=== PATIENT | male | born 2000 | race Caucasian/White ===

== ENCOUNTER 2024-09-01 16:03 | Emergency (ER) | payer MEDICAID, SELFPAY ==
[2024-09-01 16:04] VITALS: BP 136/78; PULSE 85; RESP 16; TEMP 36.6; O2SAT 97; BMI 29.5
--- NOTE | 2024-09-01 16:42 | RAD_ITS ---
PROCEDURE: CHEST 1 VIEW (PORTABLE) 09/01/2024 REASON FOR EXAM: CHEST PAIN TECHNIQUE: Frontal view of the chest. COMPARISON: None FINDINGS: No focal consolidation. No pleural effusion or pneumothorax. Cardiac silhouette is within normal limits. RAD/Chest 1 View (Portable) IMPRESSION: No focal consolidations. Reading Location: [id number]
--- NOTE | 2024-09-01 16:42 | RAD_ITS ---
PROCEDURE: CHEST 1 VIEW (PORTABLE) 09/01/2024 REASON FOR EXAM: CHEST PAIN TECHNIQUE: Frontal view of the chest. COMPARISON: None FINDINGS: No focal consolidation. No pleural effusion or pneumothorax. Cardiac silhouette is within normal limits. RAD/Chest 1 View (Portable) IMPRESSION: No focal consolidations. Reading Location: [id number]
--- NOTE | 2024-09-01 16:42 | EKG12_ITS ---
Test Reason : CP Blood Pressure : */* mmHG Vent. Rate : 68 BPM Atrial Rate : 68 BPM P-R Int : 134 ms QRS Dur : 80 ms QT Int : 358 ms P-R-T Axes : 86 74 58 degrees QTcB Int : 380 ms Normal sinus rhythm Normal ECG Confirmed by ZACH GIRON, KIMMIE ([id number]), editorial cartoonist JENNIFER CHURCHILL ([id number]) on 09/02/2024 10:07:24 AM Referred By: Jay Reyes Confirmed By: KIMMIE SERRANO MD
--- NOTE | 2024-09-01 16:42 | EKG12_ITS ---
Test Reason : CP Blood Pressure : */* mmHG Vent. Rate : 68 BPM Atrial Rate : 68 BPM P-R Int : 134 ms QRS Dur : 80 ms QT Int : 358 ms P-R-T Axes : 86 74 58 degrees QTcB Int : 380 ms Normal sinus rhythm Normal ECG Confirmed by ZACH GIRON, KIMMIE ([id number]), supervising editor trailer JENNIFER CHURCHILL ([id number]) on 09/02/2024 10:07:24 AM Referred By: Jay Reyes Confirmed By: KIMMIE SERRANO MD
[2024-09-01 17:03] VITALS: BP 127/78; PULSE 72; RESP 13; O2SAT 98
[2024-09-01 17:09] LABS: Hematocrit 41.6 % (40-54); Hemoglobin 14.0 g/dL (13.0-16.5); Immature Granulocytes Count 0.050 X10^3/uL (0.0-0.0); Mean Corp Hgb Conc 33.7 g/dL (32-36); Mean Corpuscular Volume 86.8 fL (80-94); Mean Platelet Vol. 10.1 fl (6.2-12.0); NRBC Flagged by Analyzer 0 % (0-5); Platelet Count 250 K/mm3 (150-450); RBC Distribution Width CV 12.1 % (11.6-14.6); RBC Distribution Width SD 38.6 fl (35.1-43.9); Red Blood Count 4.79 M/mm3 (4.6-6.2); White Blood Count 9.8 K/mm3 (4.4-11.0)
--- NOTE | 2024-09-01 17:28 | ED.VIS.CHEST ---
HPI History of Present Illness Chief Complaint: Chest Pain Detail of Chief Complaint: Off and on chest pain Informant: patient Onset/Context/Timing Onset: Month(s) (Proximately 12 months) Activity at onset: sudden Timing: Intermittent and Lasts (20 minutes) Quality: Positive for Burning Location: - (Epigastric xiphoid region) Current Severity: Mild Maximum Severity: Moderate Worsened By: Nothing Relieved By: Nothing Associated Symptoms: Positive for - (No radiation. No black or maroon-colored stool); Negative for Nausea, Vomiting, Diaphoresis, Dyspnea, Cough, Fever, Lightheadedness, Acid Reflux or Palpitations Narrative Narrative: Patient is a 23-year-old male. He reports that his lisa's son 2 months ago. He was not the biological father. He states he did raise him. He reports intermittent pain epigastric xiphoid area for approximately 1 year. He volunteered without prompting that his lisa believes this is due to stress and the of her son. Presently his pain-free. He has no associated symptoms. He denies radiation. He has not noted any exacerbating, precipitating or relieving factors. There is nothing specific that brings it on i.e. change in position, activity or food. He denies black or maroon-colored stool. He denies history of GERD, peptic ulcer disease or hiatal hernia. He denies leg pain, swelling discoloration. He has no history of VTE. Prior Similar Symptoms: Yes (No known cause) Recent Illness/Hospitalization: No CVD Risk Factors: Negative for Hypertension, Diabetes, Hypercholesterolemia, Family History 1' </=55 or Smoking PE Risk Factors: Negative for Recent Travel/Surgery, Recent Immobilization, Prior DVT or PE, Cancer or OCP + Smoking + >/=35 TAD Risk Factors: Negative for Marfan's Syndrome, Hypertension or Family History PFSH PFSH Medical History no medical history no medical history Home Medications ?Medication ?Instructions ?Recorded ?Last Taken ?Type NK 09/01/24 Unknown History famotidine 40 mg tablet (Pepcid) 40 mg PO DAILY #14 tabs 09/01/24 Unknown Rx Allergy/AdvReac Type Severity Reaction Status Date / Time No Known Allergies Allergy Verified 09/01/24 16:06 Surgical History no surgical history no surgical history Social History (Updated 09/01/24 @ 17:[address] Jay Reyes MD) household members: significant other and children Smoking Status: Never smoker ROS ROS ED Constitutional Constitutional ED: Denies chills, fever(s), subjective or sweats Eyes Eyes: Reports none Cardiovascular Cardiovascular: Reports as per HPI; Denies orthopnea or paroxysmal nocturnal dyspnea Respiratory/Chest Respiratory/Chest: Denies cough, dyspnea, dyspnea on exertion, orthopnea or paroxysmal nocturnal dyspnea Gastrointestinal Gastrointestinal: Reports abdominal pain; Denies constipation, diarrhea, melena, nausea or vomiting Genitourinary Genitourinary ED: Denies dysuria or hematuria Musculoskeletal Musculoskeletal: Denies back pain Integumentary Denies rash Neurologic Neurologic: Denies weakness Psychiatric Psychiatric: Reports depression Hematologic/Lymphatic Hematologic/Lymphatic: Denies easy bleeding or easy bruising EXAM Physical Exam Const Vital Signs: 09/01/24 16:04 09/01/24 17:03 09/01/24 17:03 Temperature 97.9 F Temperature Source Oral Pulse Rate 85 72 Respiratory Rate 16 13 Respiratory Effort Normal Non-Labored Blood Pressure 136/78 H 127/78 H Blood Pressure Mean 97 94 Pulse Ox 97 98 Oxygen Delivery Method Room Air Room Air 09/01/24 17:05 09/01/24 18:00 Temperature Temperature Source Pulse Rate 62 Respiratory Rate 17 Respiratory Effort Blood Pressure 128/76 H Blood Pressure Mean 93 Pulse Ox 97 Oxygen Delivery Method Room Air Positive well nourished and well developed Constitutional Narrative: Affect is flat mood is depressed. Blood pressure is elevated. Slow psychomotor skills. General Appearance ED: well developed and pallor HEENT Reports moist mucous membranes normocephalic and atraumatic Eyes PERRL and EOMs intact bilaterally General Eye ED: Negative for pale conjunctiva or scleral icterus Neck no lymphadenopathy, supple and no JVD Resp normal respiratory effort and clear to auscultation bilaterally Cardio regular rate, regular rhythm, S1 normal heart sound, S2 normal heart sound and no murmurs GI normal to inspection, nondistended, normoactive bowel sounds, soft to palpation, non-distended and no masses; Negative for non-tender or hepatosplenomegaly GI Narrative: Tenderness is in the epigastric area. Back/Spine no CVA tenderness and no thoracic nor lumbar tenderness Extremity normal to inspection General Extremety ED: Negative for edema, pulses abnormal or tenderness General Extremity: Negative for edema or pulses abnormal Neuro oriented x3 and CN's II-XII intact bilaterally Sensorium / Orientation: awake and alert Psych Mood & Affect: depressed Skin no rashes or lesions noted and no wounds General Skin Exam: pallor MDM MDM MDM Narrative Medical decision making narrative: Chest pain nurse orders were ordered. The 2-hour and 4-hour troponin was canceled. The other labs already in process of being resulted and could not cancel. In my opinion patient has epigastric pain that describes burning with reproducible pain this may be gastritis or stress ulcer. Will treat with GI cocktail. His EKG revealed no acute abnormality. Lab Data Attestation: I reviewed the patient's lab results. Labs: Laboratory Results - last 24 hr 09/01/24 16:48 WBC 9.8 RBC 4.79 Hgb 14.0 Hct 41.6 MCV 86.8 MCH 29.2 MCHC 33.7 RDW Std Deviation 38.6 RDW Coeff of Izabela 12.1 Plt Count 250 MPV 10.1 Immature Gran % (Auto) 0.500 Neut % (Auto) 74.8 H Lymph % (Auto) 16.8 L Ogle % (Auto) 6.7 Eos % (Auto) 0.5 Baso % (Auto) 0.7 Absolute Neuts (auto) 7.3 Absolute Lymphs (auto) 1.64 Nucleated RBC % 0 Sodium 140 Potassium 4.2 Chloride 104 Carbon Dioxide 25.8 Anion Gap 10 BUN 5 Creatinine 1.02 Estim Creat Clear Calc 116.58 Est GFR (MDRD) Non-Af 105 BUN/Creatinine Ratio 4.8 L Glucose 102 H Calcium 9.0 Troponin T High Sens < 6 Radiography Diagnostic Testing: Clinical Impression(s) from Imaging Studies Chest X-Ray 09/01/24 16:42 IMPRESSION: No focal consolidations. Reading Location: [facility] Treatment and Re-Evaluation :: Patient was reassessed at 1856. Patient had significant improvement with GI cocktail. Suspect this is stress related gastritis. Will prescribe H2 lety. Patient was informed of my impression. He was not in disagreement. Discharge Plan Triage Chief Complaint: Chest Pain ED Provider: EricJay Dx/Rx/DC Orders Clinical Impression: Acute epigastric pain, Gastritis, Depression, Stress at home Instructions: ED Depression, ED Gastritis (Adult) Prescriptions: New famotidine [Pepcid] 40 mg tablet 40 mg PO DAILY Qty: 14 0RF No Action NK Primary Care Provider: Noy Barcenas NP Referrals: Noy Barcenas NP, [employer] TEACHER-[employer] [Primary Care Provider] - 1-2 Weeks Print Language: Sinhala Disposition Disposition: Home, Self Care
[2024-09-01 17:34] LABS: Troponin T High Sensitivity < 6 ng/L (<=22)
[2024-09-01 17:40] LABS: Anion Gap 10 (5-15); BUN 5 mg/dL (4-19); BUN/Creat Ratio 4.8 RATIO (10-20); Calcium,Total 9.0 mg/dL (7.6-11.0); Carbon Dioxide 25.8 mmol/L (21.0-32.0); Chloride 104 mmol/L (98-108); Estimated Creatinine Clearance 116.58 ml/min (50-250); Glucose 102 mg/dL (70-99); Potassium 4.2 mmol/L (3.3-5.1)
[2024-09-01] MEDS: Lidocaine 2% Viscous15 ML UDC 15 ML PO (17:44)
[2024-09-01 18:00] VITALS: BP 128/76; PULSE 62; RESP 17; O2SAT 97
[2024-09-01 19:00] VITALS: BP 119/83; PULSE 78; RESP 14; O2SAT 98
[2024-09-01 19:16] VITALS: BP 119/83; PULSE 78; RESP 14; TEMP 36.8; O2SAT 98
== END 2024-09-01 19:21 | disposition home or self-care (01) ==
PROVIDERS: Emergency Provider Emergency Medicine; PCP Nurse Practitioner Family; Referring Provider Emergency Medicine; Visit Provider Emergency Medicine
DX: K29.70 Gastritis, unspecified, without bleeding (principal); F32.A Depression, unspecified; Z63.4 Disappearance and death of family member
CPT/HCPCS: 71045; 80048; 84484; 85025; 93005; 99285; A4216

== ENCOUNTER 2024-10-22 19:32 | Emergency (ER) | payer MEDICAID, SELFPAY ==
[2024-10-22 19:35] VITALS: BP 155/98; PULSE 85; RESP 15; TEMP 36.6; O2SAT 100
--- NOTE | 2024-10-22 20:35 | ED.RN ---
Pt's name was called for a room and pt not present in waiting room, bathroom or outside. Presumed LWBS
--- OUTSIDE RECORDS SUMMARY | 2024-10-22 20:39 | XMS RPT_ITS | CCD ---
Author Organization [facility] Care Team Providers Care Circuit Walker Name Role Phone Dr. Jay Reyes MD Referring Provider [phone] Jay Reyes MD Emergency Provider [phone] Odette Escalante Primary Care Provider Jay Reyes Attending Unavailable Jay Reyes Referring Unavailable Odette Conde Primary Care Unavailable Medications Current Medications Medication Drug Class(es) Dates Sig (Normalized) Sig (Original) famotidine 40 mg oral tablet (1 source) Histamine-2 Receptor Antagonist Start: 09-01-2024 take 1 tablet by mouth once daily Famotidine (Pepcid) 40 mg tablet Active 40 mg PO DAILY 14 0 September 01, 2024 12:00am [place] (Nk) (1 source) Start: 09-01-2024 [place] (Nk) Active September 01, 2024 12:00am Problems Problem Classification Problem Date Documented Da te Episodic/Chronic Abdominal pain (1 source) Epigastric pain; Translations: [Epigastric pain] 09-01-2024 Episodic Adjustment disorders (1 source) Family tension; Translations: [Reaction to severe stress, unspecified] 09-01-2024 Chronic Gastritis and duodenitis (1 source) Gastritis; Translations: [Gastritis, unspecified, without bleeding] 09-01-2024 Episodic Mood disorders (1 source) Depressive disorder; Translations: [Depression] 09-01-2024 Chronic Nonspecific chest pain (1 source) Chest pain, unspecified; Translations: [Chest pain, unspecified] Onset: 09-09-2024 Episodic Results Test Name Value Interpretation Reference Range Facility 12 Lead EKGon 09-01-2024 12 Lead EKG [facility] Cardiovascular Services [address] [place] [address] 12 Lead EKG 09/01/24 1617 MR#: [id number] Acct: [id number] Name: SVEN MONTANA Rep #: [id number] : 2000 23 From: Nikolas Serrano MD Attending Dr: Status: DEP ER Ordering Dr: Jay Reyes MD Date: 09/01/24 Location: ED Sex: M C Admitted: Test Reason : CP Blood Pressure : */* mmHG Vent. Rate : 68 BPM Atrial Rate : 68 BPM P-R Int : 134 ms QRS Dur : 80 ms QT Int : 358 ms P-R-T Axes : 86 74 58 degrees QTcB Int : 380 ms Normal sinus rhythm Normal ECG Confirmed by NIKOLAS SERRANO MD ([id number]), department editor JENNIFER CHURCHILL ([id number]) on 09/02/2024 10:07:24 AM Referred By: Jay Reyes Confirmed By: NIKOLAS SERRANO MD 09/02/241006 Date Nikolas Serrano MD CC: TRAIN CONDUCTOR-C Odette Conde; Dr. Jay Reyes MD Signed Normal [facility] Absolute lymphocyte countOrd ered By: ED PROVIDER on 09-01-2024 Lymphocytes Auto (Unsp spec) [#/Vol] 1.64 10*3/uL 0.83-4.51 [facility] Absolute neutrophil countOrd ered By: ED PROVIDER on 09-01-2024 Neutrophils (Bld) [#/Vol] 7.3 10*3/uL 2.0-7.7 [facility] Anion gap in Serum or Plasma Ordered By: Jay Reyes on 09-01-2024 Anion gap [Moles/Vol] 10 mmol/L 5-15 [facility] Automated lymphocyte count a s percentage of total leukocytesOrdered By: ED PROVIDER on 09-01-2024 Lymphocytes/100 WBC Auto (Unsp spec) 16.8 % Low 19-41 [facility] BUN/creatinine ratioOrdered By: Jay Reyes on 09-01-2024 Urea nitrogen/Creatinine [Mass ratio] 4.8 mg/mg Low 10-20 [facility] Basic Metabolic Profile (BMP )on 09-01-2024 BUN/CRE 4.8 RATIO Low 10-20 [facility] Comment on above: Performed By: #### L 100.0100, L500.2500, L501.4021 #### [facility] [address] [place], [address] Calcium [Mass/Vol] 9.0 mg/dL Normal 7.6-11.0 [facility] Comment on above: Performed By: #### L 100.0100, L500.2500, L501.4021 #### [facility] [address] [place], [address] Chloride [Moles/Vol] 104 mmol/L Normal 98-108 [facility] Comment on above: Performed By: #### L 100.0100, L500.2500, L501.4021 #### [facility] [address] [place], [address] CO2 [Moles/Vol] 25.8 mmol/L Normal 21.0-32.0 [facility] Comment on above: Performed By: #### L 100.0100, L500.2500, L501.4021 #### [facility] [address] [place], [address] Creatinine [Mass/Vol] 1.02 mg/dL Normal 0.70-1.20 [facility] Comment on above: Performed By: #### L 100.0100, L500.2500, L501.4021 #### [facility] [address] [place], [address] ECRCL 116.58 ml/min Normal 50-250 [facility] Comment on above: Performed By: #### L 100.0100, L500.2500, L501.4021 #### [facility] [address] [place], [address] GAP 10 Normal 5-15 [facility] Comment on above: Performed By: #### L 100.0100, L500.2500, L501.4021 #### [facility] [address] [place], [address] GFR/1.73 sq M.predicted among non-blacks MDRD (S/P/Bld) [Vol rate/Area] 105 mL/min/{1.73_m2} Normal >60 [facility] Comment on above: Result Comment: mL/m in/1.73m2 CKD-EPI Creatinine Equation (2020) Performed By: #### L 100.0100, L500.2500, L501.4021 #### [facility] [address] [place], [address] Glucose [Mass/Vol] 102 mg/dL High 70-99 [facility] Comment on above: Performed By: #### L 100.0100, L500.2500, L501.4021 #### [facility] [address] [place], [address] Potassium [Moles/Vol] 4.2 mmol/L Normal 3.3-5.1 [facility] Comment on above: Result Comment: Hemo lysis present, Results??could be affected. ?? Performed By: #### L 100.0100, L500.2500, L501.4021 #### [facility] [address] [place], [address] Sodium [Moles/Vol] 140 mmol/L Normal 133-145 [facility] Comment on above: Performed By: #### L 100.0100, L500.2500, L501.4021 #### [facility] [address] [place], [address] Urea nitrogen [Mass/Vol] 5 mg/dL Normal 4-19 [facility] Comment on above: Performed By: #### L 100.0100, L500.2500, L501.4021 #### [facility] [address] [place], [address] Basophil percentageOrdered B y: ED PROVIDER on 09-01-2024 Basophils/100 WBC (Bld) 0.7 % 0-1 [facility] CBC W/Diff, Automatedon Absolute Lymph 1.64 X10 3/uL Normal 0.83-4.51 [facility] Comment on above: Performed By: #### L 100.0100, L500.2500, L501.4021 #### [facility] [address] [place], [address] Absolute Neut 7.3 X10 3/uL Normal 2.0-7.7 [facility] Comment on above: Performed By: #### L 100.0100, L500.2500, L501.4021 #### [facility] [address] [place], [address] Basophils/100 WBC (Bld) 0.7 % Normal 0-1 [facility] Comment on above: Performed By: #### L 100.0100, L500.2500, L501.4021 #### [facility] [address] [place], [address] Eosinophils/100 WBC (Bld) 0.5 % Normal 0-5 [facility] Comment on above: Performed By: #### L 100.0100, L500.2500, L501.4021 #### [facility] [address] [place], [address] Erythrocyte distribution width (RBC) [Ratio] 12.1 % Normal 11.6-14.6 [facility] Comment on above: Performed By: #### L 100.0100, L500.2500, L501.4021 #### [facility] [address] [place], [address] Hematocrit (Bld) [Volume fraction] 41.6 % Normal 40-54 [facility] Comment on above: Performed By: #### L 100.0100, L500.2500, L501.4021 #### [facility] [address] [place], [address] Hemoglobin (Bld) [Mass/Vol] 14.0 g/dL Normal 13.0-16.5 [facility] Comment on above: Performed By: #### L 100.0100, L500.2500, L501.4021 #### [facility] [address] [place], [address] IG% 0.500 Normal 0.0-0.9 [facility] Comment on above: Result Comment: IG% - Immature Granulocytes (promyelocytes, myelocytes and metamyelocytes) > 1% indicates that a LEFT SHIFT is Present. Performed By: #### L 100.0100, L500.2500, L501.4021 #### [facility] [address] [place], [address] Lymphocytes/100 WBC (Bld) 16.8 % Low 19-41 [facility] Comment on above: Performed By: #### L 100.0100, L500.2500, L501.4021 #### [facility] [address] [place], [address] MCH (RBC) [Entitic mass] 29.2 pg Normal 27.0-32.0 [facility] Comment on above: Performed By: #### L 100.0100, L500.2500, L501.4021 #### [facility] [address] [place], [address] MCHC (RBC) [Mass/Vol] 33.7 g/dL Normal 32-36 [facility] Comment on above: Performed By: #### L 100.0100, L500.2500, L501.4021 #### [facility] [address] [place], [address] MCV (RBC) [Entitic vol] 86.8 fL Normal 80-94 [facility] Comment on above: Performed By: #### L 100.0100, L500.2500, L501.4021 #### [facility] [address] [place], [address] Monocytes/100 WBC (Bld) 6.7 % Normal 0-10 [facility] Comment on above: Performed By: #### L 100.0100, L500.2500, L501.4021 #### [facility] [address] [place], [address] Neutrophils/100 WBC (Bld) 74.8 % High 47-70 [facility] Comment on above: Performed By: #### L 100.0100, L500.2500, L501.4021 #### [facility] [address] [place], [address] Nucleated RBC (Bld) [#/Vol] 0 10*3/uL Normal 0-5 [facility] Comment on above: Performed By: #### L 100.0100, L500.2500, L501.4021 #### [facility] [address] [place], [address] Platelet mean volume (Bld) [Entitic vol] 10.1 fL Normal 6.2-12.0 [facility] Comment on above: Performed By: #### L 100.0100, L500.2500, L501.4021 #### [facility] [address] [place], [address] Platelets (Bld) [#/Vol] 250 10*3/uL Normal 150-450 [facility] Comment on above: Performed By: #### L 100.0100, L500.2500, L501.4021 #### [facility] [address] [place], [address] RBC (Bld) [#/Vol] 4.79 10*6/uL Normal 4.6-6.2 [facility] Comment on above: Performed By: #### L 100.0100, L500.2500, L501.4021 #### [facility] [address] [place], [address] RDW SD 38.6 fl Normal 35.1-43.9 [facility] Comment on above: Performed By: #### L 100.0100, L500.2500, L501.4021 #### [facility] [address] [place], [address] WBC (Bld) [#/Vol] 9.8 10*3/uL Normal 4.4-11.0 [facility] Comment on above: Performed By: #### L 100.0100, L500.2500, L501.4021 #### [facility] [address] [facility] [place], [address] Carbon dioxide, total [Moles /volume] in Central venous bloodOrdered By: Jay Reyes on 09-01-2024 CO2 [Moles/Vol] 25.8 mmol/L 21.0-32.0 [facility] Chest 1 View (Portable)on Chest 1 View (Portable) [facility] Imaging Services [address] [place] [address] Chest 1 View (Portable) MR#: [id number] Acct: [id number] Name: SVEN MONTANA Rep #: [id number] : 2000 M 23 From: Colin Bar PCP: Odette Conde NP-C Status: [facility] ER Study: Chest 1 View (Portable) Date of Exam: 09/01/24 Exam# [id number] Ordering Dr: Jay Reyes MD PROCEDURE: CHEST 1 VIEW (PORTABLE) 09/01/2024 REASON FOR EXAM: CHEST PAIN TECHNIQUE: Frontal view of the chest. COMPARISON: None FINDINGS: No focal consolidation. No pleural effusion or pneumothorax. Cardiac silhouette is within normal limits. RAD/Chest 1 View (Portable) IMPRESSION: No focal consolidations. Reading Location: [id number] CC: TRAIN CONDUCTOR-C Odette Conde; Dr. Jay Reyes MD Sausage Smoker: Signed Normal [facility] Chloride assayOrdered By: Daren Reyes on 09-01-2024 Chloride [Moles/Vol] 104 mmol/L 98-108 [facility] Emergency Department Summary on 09-01-2024 Emergency Department Summary [facility] Medical Records Department [address] [place] [address] Emergency Department Summary 09/01/24 MR#: [id number] Acct: [id number] Name: SVEN MONTANA Rep #: [id number] : 2000 23 From: Jay Reyes MD PCP: MELECIO Muhammad Status:REG ER Location: ED HPI History of Present Illness Chief Complaint: Chest Pain Detail of Chief Complaint: Off and on chest pain Informant: patient Onset/Context/Timing Onset: Month(s) (Proximately 12 months) Activity at onset: sudden Timing: Intermittent and Lasts (20 minutes) Quality: Positive for Burning Location: - (Epigastric xiphoid region) Current Severity: Mild Maximum Severity: Moderate Worsened By: Nothing Relieved By: Nothing Associated Symptoms: Positive for - (No radiation. No black or maroon-colored stool); Negative for Nausea, Vomiting, Diaphoresis, Dyspnea, Cough, Fever, Lightheadedness, Acid Reflux or Palpitations Narrative Narrative: Patient is a 23-year-old male. He reports that his fianc???e's son 2 months ago. He was not the biological father. He states he did raise him. He reports intermittent pain epigastric xiphoid area for approximately 1 year. He volunteered without prompting that his fianc???e believes this is due to stress and the of her son. Presently his pain-free. He has no associated symptoms. He denies radiation. He has not noted any exacerbating, precipitating or relieving factors. There is nothing specific that brings it on i.e. change in position, activity or food. He denies black or maroon-colored stool. He denies history of GERD, peptic ulcer disease or hiatal hernia. He denies leg pain, swelling discoloration. He has no history of VTE. Prior Similar Symptoms: Yes (No known cause) Recent Illness/Hospitalizati on: No CVD Risk Factors: Negative for Hypertension, Diabetes, Hypercholesterolemia, Family History 1' or Smoking PE Risk Factors: Negative for Recent Travel/Surgery, Recent Immobilization, Prior DVT or PE, Cancer or OCP + Smoking + >/=35 TAD Risk Factors: Negative for Marfan's Syndrome, Hypertension or Family History PFSH PFSH Medical History no medical history no medical history Home Medications ???Medication ???Instructions ???Recorded ???Last Taken ???Type NK 09/01/24 Unknown History famotidine 40 mg tablet (Pepcid) 40 mg PO DAILY #14 tabs 09/01/24 U nknown Rx Allergy/AdvReac Type Severity Reaction Status Date / Time No Known Allergies Allergy Verified 09/01/24 16:06 Surgical History no surgical history no surgical history Social History (Updated 09/01/24 @ 17:[address] Jay Reyes MD) household members: significant other and children Smoking Status: Never smoker ROS ROS ED Constitutional Constitutional ED: Denies chills, fever(s), subjective or sweats Eyes Eyes: Reports none Cardiovascular Cardiovascular: Reports as per HPI; Denies orthopnea or paroxysmal nocturnal dyspnea Respiratory/Chest Respiratory/Chest: Denies cough, dyspnea, dyspnea on exertion, orthopnea or paroxysmal nocturnal dyspnea Gastrointestinal Gastrointestinal: Reports abdominal pain; Denies constipation, diarrhea, melena, nausea or vomiting Genitourinary Genitourinary ED: Denies dysuria or hematuria Musculoskeletal Musculoskeletal: Denies back pain Integumentary Denies rash Neurologic Neurologic: Denies weakness Psychiatric Psychiatric: Reports depression Hematologic/Lymphatic Hematologic/Lymphatic : Denies easy bleeding or easy bruising EXAM Physical Exam Const Vital Signs: 09/01/24 16:04 09/01/24 17:03 09/01/24 17:03 Temperature 97.9 F Temperature Source Oral Pulse Rate 85 72 Respiratory Rate 16 13 Respiratory Effort Normal Non-Labored Blood Pressure 136/78 H 127/78 H Blood Pressure Mean 97 94 Pulse Ox 97 98 Oxygen Delivery Method Room Air Room Air 09/01/24 17:05 09/01/24 18:00 Temperature Temperature Source Pulse Rate 62 Respiratory Rate 17 Respiratory Effort Blood Pressure 128/76 H Blood Pressure Mean 93 Pulse Ox 97 Oxygen Delivery Method Room Air Positive well nourished and well developed Constitutional Narrative: Affect is flat mood is depressed. Blood pressure is elevated. Slow psychomotor skills. General Appearance ED: well developed and pallor HEENT Reports moist mucous membranes normocephalic and atraumatic Eyes PERRL and EOMs intact bilaterally General Eye ED: Negative for pale conjunctiva or scleral icterus Neck no lymphadenopathy, supple and no JVD Resp normal respiratory effort and clear to auscultation bilaterally Cardio regular rate, regular rhythm, S1 normal heart sound, S2 normal heart sound and no murmurs GI normal to inspection, nondistended, normoactive bowel sounds, soft to palpation, non-diste (more content not included)... Normal [facility] Eosinophil percentageOrdered By: ED PROVIDER on 09-01-2024 Eosinophils/100 WBC (Bld) 0.5 % 0-5 [facility] Erythrocyte distribution wid th ratioOrdered By: ED PROVIDER on 09-01-2024 Erythrocyte distribution width (RBC) [Ratio] 12.1 % 11.6-14.6 [facility] Erythrocyte distribution wid th standard deviationOrdered By: ED PROVIDER on 09-01-2024 Erythrocyte distribution width (RBC) [Ratio] 38.6 fl 35.1-43.9 [facility] Glomerular filtration rate ( GFR) estimation/1.73 sq m using serum, plasma, or whole bOrdered By: Jay Reyes on 09-01-2024 GFR/1.73 sq M.predicted among non-blacks MDRD (S/P/Bld) [Vol rate/Area] 105 mL/min/{1.73_m2} >60 [facility] Comment on above: mL/min/1.73m2 CKD-EP I Creatinine Equation (2020) Hematocrit Auto (Bld) [Volum e fraction]Ordered By: ED PROVIDER on 09-01-2024 Hematocrit (Bld) [Volume fraction] 41.6 % 40-54 [facility] Hemoglobin measurementOrdere d By: ED PROVIDER on 09-01-2024 Hemoglobin (Bld) [Mass/Vol] 14.0 g/dL 13.0-16.5 [facility] Immature granulocytes/100 WB C Auto (Bld)Ordered By: ED PROVIDER on 09-01-2024 Immature granulocytes/100 WBC (Bld) 0.500 % 0.0-0.9 [facility] Comment on above: IG% - Immature Granu locytes (promyelocytes, myelocytes and metamyelocytes) > 1% indicates that a LEFT SHIFT is Present. L499.0042on 09-01-2024 Trop T High Sen Normal <=22 [facility] Comment on above: Result Comment: Canc elled via OM: MD Ordered Performed By: #### L 499.0042 #### [facility] [address] [place], [address] L499.0043on 09-01-2024 Trop T High Sen Normal <=22 [facility] Comment on above: Result Comment: Canc elled via OM: MD Ordered Performed By: #### L 499.0043 #### [facility] [address] [place], [address] L501.4021on 09-01-2024 Trop T High Sen < 6 Normal <=22 [facility] Comment on above: Performed By: #### L 100.0100, L500.2500, L501.4021 #### [facility] [address] [place], [address] MCV (mean corpuscular volume ) determinationOrdered By: ED PROVIDER on 09-01-2024 MCV (RBC) [Entitic vol] 86.8 fL 80-94 [facility] Mean corpuscular hemoglobin (MCH) determinationOrdered By: ED PROVIDER on 09-01-2024 MCH (RBC) [Entitic mass] 29.2 pg 27.0-32.0 [facility] Mean corpuscular hemoglobin concentration (MCHC) determinationOrdered By: ED PROVIDER on 09-01-2024 MCHC (RBC) [Mass/Vol] 33.7 g/dL 32-36 [facility] Mean platelet volume determi nationOrdered By: ED PROVIDER on 09-01-2024 Platelet mean volume (Bld) [Entitic vol] 10.1 fL 6.2-12.0 [facility] Monocyte percentageOrdered B y: ED PROVIDER on 09-01-2024 Monocytes/100 WBC (Bld) 6.7 % 0-10 [facility] Neutrophil percentageOrdered By: ED PROVIDER on 09-01-2024 Neutrophils/100 WBC (Bld) 74.8 % High 47-70 [facility] Nucleated red blood cell per centageOrdered By: ED PROVIDER on 09-01-2024 Nucleated RBC/100 WBC (Bld) [Ratio] 0 % 0-5 [facility] Platelet countOrdered By: ED PROVIDER on 09-01-2024 Platelets (Bld) [#/Vol] 250 10*3/uL 150-450 [facility] Potassium measurement (mass/ volume)Ordered By: Jay Reyes on 09-01-2024 Potassium (Unsp spec) [Mass/Vol] 4.2 mmol/L 3.3-5.1 [facility] Comment on above: Hemolysis present, R esults could be affected. RBC Auto (Bld) [#/Vol]Ordere d By: ED PROVIDER on 09-01-2024 RBC (Bld) [#/Vol] 4.79 10*6/uL 4.6-6.2 [facility] Serum creatinine measurement (mass/volume)Ordered By: Jay Reyes on 09-01-2024 Creatinine [Mass/Vol] 1.02 mg/dL 0.70-1.20 [facility] Serum glucose measurement (m ass/volume)Ordered By: Jay Reyes on 09-01-2024 Glucose [Mass/Vol] 102 mg/dL High 70-99 [facility] Serum or plasma calcium tracy urement (mass/volume)Ordered By: Jay Reyes on 09-01-2024 Calcium [Mass/Vol] 9.0 mg/dL 7.6-11.0 [facility] Serum or plasma urea nitroge n measurement (mass/volume)Ordered By: Jay Reyes on 09-01-2024 Urea nitrogen [Mass/Vol] 5 mg/dL 4-19 [facility] Sodium levelOrdered By: Jay Reyes on 09-01-2024 Sodium [Moles/Vol] 140 mmol/L 133-145 [facility] Troponin T.cardiac [Mass/vol ume] in Serum or Plasma by High sensitivity methodOrdered By: Jay Reyes on 09-01-2024 Troponin T.cardiac High sensitivity method [Mass/Vol] < 6 ng/L <22 [facility] White blood cell (WBC) count Ordered By: ED PROVIDER on 09-01-2024 WBC (Bld) [#/Vol] 9.8 10*3/uL 4.4-11.0 [facility] CNCOon 01-01-2021 CNCO Letter Text Normal [facility] CNPNon 01-01-2021 SELVIN Telephone (AGFAMPLE) SVEN MONTANA ([id number]) 89 M Date Time Provider Department 01/01/21 ODETET CONDE During your visit today, we recorded the following information about you: Kiarra Rodriguez 01/01/2021 2:23 PM Signed No Show Documentation Sven Montana no showed for an appointment on 01-01-2021 with Odette Conde APRN.CNP at 10:20 am. He was scheduled for wellness . I called and spoke with the patient regarding his missed appointment. Sven stated the reason that he missed his appointment was because forgot about appointment . Resources discussed/offered to patient: phone number not working No show determined to be fault of patient: Yes This is the patients first no show in the last 12 months. Patient was rescheduled for n/a. Letter mailed : Yes Is this the Third or Fourth No Show? No Kiarra Rodriguez January 01, 2021 2:20 PM Allergies As of Date: 01/01/2021 (No Known Allergies) Date Reviewed: 10/12/2019 Reviewed by: Tata Broussard - Fully Assessed Reason for Visit: Missed Appointment [1304] Prescriptions as of 01/01/2021 - nicotine (NICODERM) 21 mg/24 hr Apply 1 Patch as directed every 24 hours. - nicotine (NICODERM) 14 mg/24 hr Apply 1 Patch as directed every 24 hours for 14 days. - nicotine (NICODERM) 7 mg/24 hr Apply 1 Patch as directed every 24 hours for 14 days. Problem List As Of Date: 01/01/2021 (None) Encounter Status:Closed by KIARRA RODRIGUEZ on 01/01/21 Normal [facility] CHEST 2 VIEWSon 02-21-2017 CHEST 2 VIEWS Performed at [facility] APPROVED BY: PHILLIP LOPEZ MD EXAMINATION: CHEST RADIOGRAPH (2 VIEW FRONTAL & LATERAL) Clinical History: Shortness of breathM: XC2_3Comparison: None RESULT: Lines, tubes, and devices: None. Lungs and pleura: No consolidation. No lung mass. No pleural effusion. Cardiomediastinal silhouette: Normal cardiomediastinal silhouette. Other: IMPRESSION: No acute radiographic abnormality. Normal [facility] Throat Cultureon 02-21-2017 Throat Culture Test performed at [facility] No group A beta streptococci cultured. Normal [facility] Comment on above: Performed By: #### C THRT ####[place] [address] Throat Rapid Grp A Strepon 1 04-24-2016 Rapid strep test see below Normal Negative [facility] Comment on above: Result Comment: Nega tive for group A Streptococcus antigen. Performed By: #### L RAPS ####[place] [address] Monoteston 12-16-2016 Monotest Negative Normal Negative [facility] Comment on above: Performed By: #### L MONO ####[place] [address] Throat Cultureon 12-16-2016 Throat Culture Test performed at [facility] No group A beta streptococci cultured. Normal [facility] Comment on above: Performed By: #### C THRT ####[place] [address] Throat Rapid Grp A Strepon 1 Rapid strep test see below Normal Negative [facility] Comment on above: Result Comment: Nega tive for group A Streptococcus antigen. Performed By: #### L RAPS ####[place] [address] Vital Signs Date Time Vital Sign Value Performing Clinician Salazar owen 09-01-2024 19:16-0400 Body temperature 98.3 [degF] Dr. Jay Reyes MD Work Phone: [phone] [place] [address] 09-01-2024 19:16-0400 Diastolic blood pressure 83 mm[Hg] Dr. Jay Reyes MD Work Phone: 1(050)[phone] [address] 09-01-2024 19:16-0400 Heart rate 78 /min Dr. Jay Reyes MD Work Phone: 1(033)[phone] [address] 09-01-2024 19:16-0400 Respiratory rate 14 /min Dr. Jay Reyes MD Work Phone: 4(213)[phone] [address] 09-01-2024 19:16-0400 SaO2% (BldA) [Mass fraction] 98 % Dr. Jay Reyes MD Work Phone: [facility] 09-01-2024 19:16-0400 Systolic blood pressure 119 mm[Hg] Dr. Jay Reyes MD Work Phone: [phone] [address] 09-01-2024 16:04-0400 Body height 170.[address] Jay Reyes MD Work Phone: [phone](130)[phone] [address] 09-01-2024 16:04-0400 Body mass index (BMI) [Ratio] 29.5 kg/m2 Dr. Jay Reyes MD Work Phone: [facility] 09-01-2024 16:04-0400 Body weight 85.[address] Jay Reyes MD Work Phone: [facility] Encounters Encounter Date Encounter Type Care Provider Facility Start: 09-01-2024 End: 09-01-2024 Emergency department patient visit Dr. Jay Reyes MD Work Phone: -Emergency Department Work Phone: Procedures Date Procedure Procedure Detail Performing Clinician Start: 09-01-[address] Jay Reyes MD Work Phone: Start: 09-01-2024 Plain chest X-ray Dr. Eleuterio Reyes MD Work Phone: Plan of Treatment Date Care Activity Detail Author Start: 09-01-2024 End: 09-01-2024 [facility] Start: 09-01-2024 End: 09-01-2024 [facility] Patient Education ED Depression ED Gastritis (Adult) [facility] Work Phone: Payers Date Payer Category Payer Self-pay 2024 Unknown [id number] 2011 Unknown [id number] Unknown [id number] Social History Date Type Detail Facility Start: 09-01-2024 Tobacco smoking stat us VAIS Never smoked tobacco (finding) [facility] Start: 2000 Sex Assigned At Male W [facility] Mental Status Date Assessment Result Facility 09-01-2024 Cognitive function Voice/Name [facility] Work Phone: Discharge summary 09-01-2024 Note Date & Type Note Facility 09-01-2024 Discharge summary [facility] Radiology Diagnostic study note 09-01-2024 Note Date & Type Note Facility 09-01-2024 Radiology Diagnostic study note [facility] Imaging Services [address], [place] [address] Chest 1 View (Portable) MR#: [id number] Acct: [id number] Name: SVEN MONTANA Dipika Rep #: [id number] : 2000 M 23 From: Alice Figueroa MD PCP: JORJE MuhammadC Status: REG ER Study:Chest 1 View (Portable) Date of Exam: 09/01/24 Exam# [id number] Ordering Dr: Daren Reyes MD PROCEDURE: CHEST 1 VIEW (PORTABLE) 09/01/2024 REASON FOR EXAM: CHEST PAIN TECHNIQUE: Frontal view of the chest. COMPARISON: None FINDINGS: No focal consolidation. No pleural effusion or pneumothorax. Cardiac silhouette is within normal limits. RAD/Chest 1 View (Portable) IMPRESSION: No focal consolidations. Reading Location: [id number] CC: TRAIN CONDUCTOR-C Odette Conde; Dr. Jay Reyes MD ~ Sausage Smoker: Signed [facility] Discharge summary 09-01-2024 Note Date & Type Note Facility 09-01-2024 Discharge summary Note Date/Time September 01, 2024 7:01pm [facility] Medical Records Department [address] [place] [address] Emergency Department Summary 09/01/24 MR#: [id number] Acct: [id number] Name: SVEN MONTANA Rep #:[id number] : 2000 23 From: Jay Reyes MD PCP: MELECIO Muhammad Status:REG ER Location: ED HPI History of Present Illness Chief Complaint: Chest Pain Detail of Chief Complaint: Off and on chest pain Informant: patient Onset/Context/Timing Onset: Month(s) (Proximately 12 months) Activity at onset: sudden Timing: Intermittent and Lasts (20 minutes) Quality: Positive for Burning Location: - (Epigastric xiphoid region) Current Severity: Mild Maximum Severity: Moderate Worsened By: Nothing Relieved By: Nothing Associated Symptoms: Positive for - (No radiation. No black or maroon-colored stool); Negative for Nausea, Vomiting, Diaphoresis, Dyspnea, Cough, Fever, Lightheadedness, Acid Reflux or Palpitations Narrative Narrative: Patient is a 23-year-old male. He reports that his lisa's son 2 months ago. He was not the biological father. He states he did raise him. He reportsintermittent pain epigastric xiphoid area for approximately 1 year. He volunteered without prompting that his lisa believes this is due to stress and the of her son. Presently his pain-free. He has no associated symptoms. He denies radiation. He has not noted any exacerbating, precipitating or relieving factors. There is nothing specific that brings it beto.e. change in position, activity or food. He denies black or maroon-colored stool. He denies history of GERD, peptic ulcer disease or hiatal hernia. He denies leg pain, swelling discoloration. He has no history of VTE. Prior Similar Symptoms: Yes (No known cause) Recent Illness/Hospitalization: No CVD Risk Factors: Negative for Hypertension, Diabetes, Hypercholesterolemia, Family History 1' </=55 or Smoking PE Risk Factors: Negative for Recent Travel/Surgery, Recent Immobilization, Prior DVT or PE, Cancer or OCP + Smoking + >/=35 TAD Risk Factors: Negative for Marfan's Syndrome, Hypertension or Family History PFSH PFSH Medical History no medical history no medical history Home Medications ?Medication ?Instructions ?Recorded ?Last Taken ?Type NK 09/01/24 Unknown History famotidine 40 mg tablet (Pepcid) 40 mg PO DAILY #14 ta bs 09/01/24 Unknown Rx Allergy/AdvReac Type Severity Reaction Status Date / Time No Known Allergies Allergy Verified 09/01/24 16:06 Surgical History no surgical history no surgical history Social History (Updated 09/01/24 @ 17:[address] Jay Reyes MD) household members: significant other and children Smoking Status: Never smoker ROS ROS ED Constitutional Constitutional ED: Denies chills, fever(s), subjective or sweats Eyes Eyes: Reports none Cardiovascular Cardiovascular: Reports as per HPI; Denies orthopnea or paroxysmal nocturnal dyspnea Respiratory/Chest Respiratory/Chest: Denies cough, dyspnea, dyspnea on exertion, orthopnea or paroxysmal nocturnal dyspnea Gastrointestinal Gastrointestinal: Reports abdominal pain; Denies constipation, diarrhea, melena,nausea or vomiting Genitourinary Genitourinary ED: Denies dysuria or hematuria Musculoskeletal Musculoskeletal: Denies back pain Integumentary Denies rash Neurologic Neurologic: Denies weakness Psychiatric Psychiatric: Reports depression Hematologic/Lymphatic Hematologic/Lymphatic: Denies easy bleeding or easy bruising EXAM Physical Exam Const Vital Signs: 09/01/24 16:04 09/01/24 17:03 09/01/24 17:03 Temperature 97.9 F Temperature Source Oral Pulse Rate 85 72 Respiratory Rate 16 13 Respiratory Effort Normal Non-Labored Blood Pressure 136/78 H 127/78 H Blood Pressure Mean 97 94 Pulse Ox 97 98 Oxygen Delivery Method Room Air Room Air 09/01/24 17:05 09/01/24 18:00 Temperature Temperature Source Pulse Rate 62 Respiratory Rate 17 Respiratory Effort Blood Pressure 128/76 H Blood Pressure Mean 93 Pulse Ox 97 Oxygen Delivery Method Room Air Positive well nourished and well developed Constitutional Narrative: Affect is flat mood is depressed. Blood pressure is elevated. Slow psychomotorskills. General Appearance ED: well developed and pallor HEENT Reports moist mucous membranes normocephalic and atraumatic Eyes PERRL and EOMs intact bilaterally General Eye ED: Negative for pale conjunctiva or scleral icterus Neck no lymphadenopathy, supple and no JVD Resp normal respiratory effort and clear to auscultation bilaterally Cardio regular rate, regular rhythm, S1 normal heart sound, S2 normal heart sound and no murmurs GI normal to inspection, nondistended, normoactive bowel sounds, soft to palpation,non-distended and no masses; Negative for non-tender or hepatosplenomegaly GI Narrative: Tenderness is in the epigastric area. Back/Spine no CVA tenderness and no thoracic nor lumbar tenderness Extremity normal to inspection General Extremety ED: Negative for edema, pulses abnormal or tenderness General Extremity: Negative for edema or pulses abnormal Neuro oriented x3 and CN's II-XII intact bilaterally Sensorium / Orientation: awake and alert Psych Mood & Affect: depressed Skin no rashes or lesions noted and no wounds General Skin Exam: pallor MDM MDM MDM Narrative Medical decision making narrative: Chest pain nurse orders were ordered. The 2-hour and 4-hour troponin was canceled. The other labs already in process of being resulted and could not cancel. In my opinion patient has epigastric pain that describes burning with reproducible pain this may be gastritis or stress ulcer. Will treat with GI cocktail. His EKG revealed no acute abnormality. Lab Data Attestation: I reviewed the patient's lab results. Labs: Laboratory Results - last 24 hr 09/01/24 16:48 WBC 9.8 RBC 4.79 Hgb 14.0 Hct 41.6 MCV 86.8 MCH 29.2 MCHC 33.7 RDW Std Deviation 38.6 RDW Coeff of Izabela 12.1 Plt Count 250 MPV 10.1 Immature Gran % (Auto) 0.500 Neut % (Auto) 74.8 H Lymph % (Auto) 16.8 L Crockett % (Auto) 6.7 Eos % (Auto) 0.5 Baso % (Auto) 0.7 Absolute Neuts (auto) 7.3 Absolute Lymphs (auto) 1.64 Nucleated RBC % 0 Sodium 140 Potassium 4.2 Chloride 104 Carbon Dioxide 25.8 Anion Gap 10 BUN 5 Creatinine 1.02 Estim Creat Clear Calc 116.58 Est GFR (MDRD) Non-Af 105 BUN/Creatinine Ratio 4.8 L Glucose 102 H Calcium 9.0 Troponin T High Sens < 6 Radiography Diagnostic Testing: Clinical Impression(s) from Imaging Studies Chest X-Ray 09/01/24 16:42 IMPRESSION: No focal consolidations. Reading Location: [facility] Treatment and Re-Evaluation :: Patient was reassessed at 1856. Patient had significant improvement with GI cocktail. Suspect this is stress related gastritis. Will prescribe H2 lety. Patient was informed of my impression. He was not in disagreement. Discharge Plan Triage Chief Complaint: Chest Pain ED Provider: Jay Reyes Dx/Rx/DC Orders Clinical Impression: Acute epigastric pain, Gastritis, Depression, Stress at home Instructions: ED Depression, ED Gastritis (Adult) Prescriptions: New famotidine [Pepcid] 40 mg tablet 40 mg PO DAILY Qty: 14 0RF No Action NK Primary Care Provider: Odette Conde NP Referrals: Odette Conde NP, TRAIN CONDUCTOR-C [Primary Care Provider] - 1-2 Weeks Print Language: Nigerian Disposition Disposition: Home, Self Care What to do if you have Problems For any increased pain, shortness of breath, bleeding, nausea or vomiting, chestpain, or any unexpected problems, contact your Primary Care Provider. Call [facility] ([phone]) or report to the closest Emergency Room. Call 911 if necessary. 09/01/24 190 <Electronically signed by Jay Reyes MD> Cosigner Signature (if applicable): CC: MELECIO Conde ~ Signed [facility] Work Phone: Evaluation note Note Date & Type Note Facility Evaluation note No assessment information availa ble [facility] Work Phone: Reason for referral (narrative) Note Date & Type Note Facility Reason for referral (narrative) No reason for referral information available [facility] Work Phone: Summary Purpose Family History No Family History Records FoundNo Family History Records FoundNo Family History Records Found Advance Directives No Advanced Directives Records Found Advance Directive Response Recorded Date/ Time Do you have a Healthcare Power of Ship'S Officer? No September 01, 2024 5:03pm Chief Complaint and Reason for Visit Chief Complaint Admit Date chest pain September 01, 2024 4:03p m Additional Source Comments (unrecognized sect ion and content) No Status Records FoundNo Status Records FoundNo Status Records Found INFORMATION SOURCE (unrecogn ized section and content) DATE CREATED AUTHOR 08/26/2017 [facility] DATE CREATED AUTHOR AUTHOR'S ORGANIZ ATION 04/04/2021 [facility] DATE CREATED AUTHOR AUTHOR'S ORGANIZ ATION 09/13/2024 [facility] Care Teams (unrecognized sec tion and content) Team Status: Active Member Role/Relationship Status Dates Odette Conde NP, NP-C Primary Care Provider Active Team Status: Inactive Member Role/Relationship Status Dates Dr. Jay Reyes MD Referring Provider Active Sta rt: September 01, 2024 End: September 01, 2024 Dr. Jay Reyes MD Emergency Provider Active Sta rt: September 01, 2024 End: September 01, 2024 Odette Conde NP, TRAIN CONDUCTOR-C Primary Care Provider Active Start: September 01, 2024 End: September 01, 2024 Goals (unrecognized section and content) Goals may be documented in a n alternate section FOR RECORDS PERTAINING TO PATIENTS WHO ARE OR HAVE BEEN ENROLLED IN A CHEMICAL DEPENDENCY/SUBSTANCEABUSE PROGRAM, SOME INFORMATION MAY BE OMITTED. This clinical summary was aggregated from multiple sources. Caution should be exercised in using it in the provision of clinical care. This summary normalizes information from multiple sources, and as a consequence, information in this document may materially change the coding, format and clinical context of patient data. In addition, data may be omitted in some cases. CLINICAL DECISIONS SHOULD BE BASED ON THE PRIMARY CLINICAL RECORDS. [facility]. provides no warranty or guarantee of the accuracy or completeness of information in this document.
== END 2024-10-22 20:30 | disposition left against medical advice (07) ==
LOC: ED 20:37
PROVIDERS: PCP Nurse Practitioner Family
DX: Z53.21 Procedure and treatment not carried out due to patient leaving prior to being seen by health care provider (principal)